=== PATIENT | female | born 1935 | race Caucasian/White ===

== ENCOUNTER 2016-08-17 11:04 | Emergency (ER) | payer OTHER ==
--- NOTE | 2016-08-17 13:10 | EDPHY ---
HPI/HX/ROS/PE/MDM Narrative: CHIEF COMPLAINT: Fall onto left side HISTORY OF PRESENT ILLNESS: 81-year-old female was walking up a slope in her backyard when she stumbled on a metal lawn edging and fell landing onto her left side. No loss of consciousness. No preceding syncope, chest pain, shortness of breath. Patient reports it was a mechanical fall. No head trauma. She reports pain on her left shoulder, left humerus, diminished range of motion at the left shoulder, pain across the lower left chest. Patient also noticed a bruise on her right thigh this morning. No nausea, vomiting, abdominal pain. No flank pain. No reports of hematuria. REVIEW OF SYSTEMS: Aside from elements discussed in the HPI, a comprehensive 10-point review of systems was reviewed and is negative. PAST MEDICAL HISTORY: On aspirin. SOCIAL HISTORY: . VITAL SIGNS: Reviewed by me; see NN. GENERAL: Well-developed, well-nourished, in no acute distress. HEENT: Head: Atraumatic, normocephalic. Face: Atraumatic. PERRL, EOMI, no nystagmus. Oropharynx: No trauma, normal occlusion. Neck: Nontender to palpation, no pain with range of motion, no adenopathy. CHEST:Tenderness across lower left chest wall and lateral chest. No subcutaneous air palpable. No bruising or abrasions or lacerations. LUNGS: Clear to auscultation bilaterally, breath sounds are equal. CARDIAC: Regular rate and rhythm, no rubs, murmurs or gallops. ABDOMEN: Soft, mild luq and epigastric tendernss, nondistended, bowel sounds normal. BACK: No CVA tenderness, no spinal tenderness. EXTREMITIES: Small ecchymosis on right anterior thigh, TTP over left humeral head, no ttp at AC joint. General limitation in movement of left shoulder due to discomfort. Unable to abduct or extend without some discomfort. PULSES: 2+ and equal throughout. NEURO: Alert and oriented x3, cranial nerves are intact throughout, normal motor , normal sensation. SKIN: Warm and dry, no rash. ED Course: 81 year old female with fall onto her lawn yesterday. OVerall looks quite well. Some lateral chest discomfort with breathing and LUQ tenderness. CXR neg for acute abnormalities. Able to visualize the left shoulder well on chest xray. Patient declined further imaging of shoulder. CT scan of abdomen pelvis performed for upper abd discomfort; patient on aspirin. No acute traumatic abnormalities. Hypodensity in liver poorly imaged as patient allergic to contrast dye. Will follow up with PCP regarding lesion; patient believes it may be pre- existing. MDM: Differential diagnosis of this patients injury was considered including but not limited to intracranial injury, long bone and pelvic bone fracture, spinal injury, intrathoracic injury, extremity injury, intra-abdominal injury, lacerations, abrasions, and contusions. - Data Points Imaging: Discussed imaging studies w/ supervisor cap and hat production Radiologist, I viewed and interpreted images myself General Time Seen by Provider: 08/17/16 12:50 Initial Vital Signs: Initial Vital Signs Temperature (C) 36.4 C 08/17/16 11:24 Heart Rate 65 08/17/16 11:24 Respiratory Rate 17 08/17/16 11:24 Blood Pressure 173/86 H 08/17/16 11:24 O2 Sat (%) 98 08/17/16 11:24 O2 Delivery Mode Room Air Allergies/Adverse Reactions: IVP DYE Allergy (Uncoded 09/01/10 07:50) LEVOQUIN Allergy (Uncoded 09/01/10 07:50) Home Medications: Medication Instructions Recorded Aspirin [Aspirin 81mg (OTC)] 81 mg PO DAILY 03/13/13 Calcium Citrate 500 mg PO BID 03/13/13 Carboxymethylcellulose 1% [Refresh 1 drop EACHEYE BID PRN 03/13/13 Celluvisc] Cholecalciferol Vit D3 [Vitamin D3 1,000 units PO DAILY 03/13/13 1000 units (OTC)] Cyanocobalamin [Vitamin B12 1000 1,000 mcg PO DAILY 03/13/13 MCG (OTC)] Glucosam/Chondr/Collagn/Hyalur 1 each PO BID 03/13/13 [Glucosamine & Chondroitin Cap] Herbals/Supplements -Info Only 1 tab PO DAILY 03/13/13 Multivitamins [Tab-A-[place]] 1 each PO DAILY 03/13/13 Omeprazole 20 mg PO DAILY 03/13/13 Atorvastatin Calcium 08/17/16 Hydrocodone/APAP 5/325 [[place] 1 tab PO Q6H PRN #10 tab 08/17/16 5/325 (RX)] Departure - Departure Disposition: Home, Routine, Self-Care Clinical Impression: Rib contusion, Shoulder contusion Condition: Good Instructions: Rib Contusion (ED) Additional Instructions: #1. Your CT today was negative for rib fracture. There was a subsequent finding of hypodensity in the right lobe of your liver. Please be sure to follow up with this. #2. You have been referred to an Orthopedic surgeon below. If you continue to have pain after 1 week please arrange followup for reexamination. #3. I recommend Ibuprofen (Motrin, Advil) or Naproxen Sodium (Aleve) for pain and anti-inflammatory effects. You may take either one, but do not take both. Your dose is: Ibuprofen 400 mg every 6-8 hours with food. OR Naproxen Sodium (Aleve) 220 mg every 12 hours. Referrals: Pranay Ramirez MD [Primary Care Provider] - As per Instructions Costa Ulloa MD [Medical Doctor] - As per Instructions (Orthopedic surgeon) Prescriptions: Hydrocodone/APAP 5/325 [[place] 5/325 (RX)] 1 tab PO Q6H PRN #10 tab PRN Reason: Pain Report Scribed for: Radha Peterson Report Scribed by: Naima Narvaez Date of Report: 08/17/16 Time of Report: 14:37 Physician Review and Approval Statement: Portions of this note were transcribed by a medical researcher. I personally performed a history, physical exam, medical decision making, and confirmed accuracy of information the transcribed note.
[2016-08-17 14:50] VITALS: BP 161/91; PULSE 82; RESP 18; TEMP 98.1; O2SAT 95
== END 2016-08-17 14:50 | disposition home or self-care (01) ==
DX: S40.012A Contusion of left shoulder, initial encounter (principal); S20.212A Contusion of left front wall of thorax, initial encounter; Z79.82 Long term (current) use of aspirin; W20.8XXA Other cause of strike by thrown, projected or falling object, initial encounter; Y92.89 Other specified places as the place of occurrence of the external cause; Y99.8 Other external cause status; Y93.01 Activity, walking, marching and hiking